=== PATIENT | female | born 1995 | race Caucasian/White ===

== ENCOUNTER 2017-06-22 01:02 | Emergency (ER) | payer MEDICAID ==
[~2017-06-22] VITALS: Ht 157.5 cm; Wt 155.0 kg
[~2017-06-22 01:02] MED LIST: CLA10T PO; CYCL-1 PO; MULT-785 PO; NEOM14.216 TP
[2017-06-22 01:23] LABS: CLARITY,URINE CLEAR (Clear); COLOR,URINE YELLOW (Yellow); GLUCOSE, URINE 500 mg/dl (Neg); KETONES,URINE NEGATIVE (Neg); LEUKOCYTE ESTERASE ,URINE NEGATIVE (Neg); NITRITES, URINE NEGATIVE (Neg); OCCULT BLOOD,URINE NEGATIVE (Neg); PROTEIN,URINE NEGATIVE (Neg); UROBILINOGEN,URINE 0.2 E.U/dL (0.2-1.0)
[2017-06-22 01:28] LABS: UA COLLECTION TYPE CLN CATCH MIDSTREAM
[2017-06-22 01:30] LABS: URINE HCG NEGATIVE (NEG)
[2017-06-22] MEDS ORDERED: ketorolac trometh inj. 60 MG/2 ML VIAL IM ONE (02:35)
[2017-06-22] MEDS ORDERED: HYDROcodone/acetaminophen 10/325mg tab PO ONE (02:35)
[2017-06-22] MEDS ORDERED: HYDR-565 PO (03:41)
[2017-06-22 03:57] VITALS: BP 142/98
== END 2017-06-22 03:58 | disposition home or self-care (01) ==
LOC: ER 01:02
DX: E28.2 Polycystic ovarian syndrome (principal); J45.909 Unspecified asthma, uncomplicated; Z88.0 Allergy status to penicillin; Z79.899 Other long term (current) drug therapy
CPT/HCPCS: 81003; 81025; 87210; 96372; 99284; J1885

== ENCOUNTER 2017-08-02 18:51 | Emergency (ER) | payer MEDICAID ==
[~2017-08-02] VITALS: Ht 157.5 cm; Wt 138.0 kg
[2017-08-02 19:18] LABS: BASOPHILS # (AUTO) 0.1 X10'3 (0-0.2); BASOPHILS % (AUTO) 0.7 % (0-1); EOSINOPHILS # (AUTO) 0.2 X10'3 (0-0.9); EOSINOPHILS % (AUTO) 1.5 % (0-6); HEMATOCRIT 38.5 % (35.0-45.0); HEMOGLOBIN 13.2 g/dl (12.0-16.0); LYMPHOCYTES % (AUTO) 30.8 % (21-51); MEAN CORPUSCULAR HEMOGLOBIN 27.7 PG (27.0-31.0); MEAN CORPUSCULAR HGB CONC 34.3 % (33.0-36.5); MEAN CORPUSCULAR VOLUME 80.9 FL (78-98); MEAN PLATELET VOLUME 9.2 FL (7.4-10.4); MONOCYTES # (AUTO) 0.4 X10'3 (0-0.9); MONOCYTES % (AUTO) 4.6 % (2-12); NEUTROPHILS # (AUTO) 6.1 X10'3 (1.8-7.7); NEUTROPHILS % (AUTO) 62.4 % (42-75); PLATELET COUNT 286 X10'3 (140-440); RED BLOOD COUNT 4.76 X10'6 (4.20-5.60); RED CELL DISTRIBUTION WIDTH 13.4 % (11.5-14.5); WHITE BLOOD COUNT 9.8 X10'3 (4.5-11.0)
[2017-08-02 19:24] LABS: INR 0.9 INR; PROTHROMBIN TIME 9.7 SECONDS (9.0-12.0)
[2017-08-02 19:29] LABS: ALBUMIN 3.8 G/DL (3.4-5.0); ANION GAP 10 (8-16); BILIRUBIN,TOTAL 0.3 MG/DL (0.1-1.0); BLOOD UREA NITROGEN 12 MG/DL (7-18); BUN/CREATININE RATIO 15.6 (6.6-38.0); CALCIUM 9.5 MG/DL (8.5-10.1); CHLORIDE 101 MMOL/L (99-107); CREATININE 0.77 MG/DL (0.40-0.90); GLUCOSE 148 MG/DL (70-104); POTASSIUM 3.8 MMOL/L (3.5-5.1); SODIUM 139 MMOL/L (135-145); TOTAL CARBON DIOXIDE 28.2 MMOL/L (24-32); TOTAL PROTEIN 7.8 G/DL (6.4-8.2); eGFR > 90 ML/MIN
[2017-08-02 19:30] LABS: ALANINE AMINOTRANSFERASE 77 U/L (12-78); ALKALINE PHOSPHATASE 69 IU/L (20-180); ASPARTATE AMINO TRANSFERASE 39 U/L (10-37)
[2017-08-02 19:45] LABS: CLARITY,URINE Clear (Clear); COLOR,URINE Yellow (Yellow); GLUCOSE, URINE 100 mg/dl (Neg); KETONES,URINE Negative (Neg); LEUKOCYTE ESTERASE ,URINE Negative (Neg); NITRITES, URINE Negative (Neg); OCCULT BLOOD,URINE Negative (Neg); PROTEIN,URINE Negative (Neg); UROBILINOGEN,URINE 0.2 E.U/dL (0.2-1.0)
[2017-08-02 19:46] LABS: UA COLLECTION TYPE CLN CATCH MIDSTREAM
[2017-08-02 22:10] VITALS: BP 159/106
== END 2017-08-03 00:16 | disposition left against medical advice (07) ==
LOC: ER 18:51
DX: N83.209 Unspecified ovarian cyst, unspecified side (principal); J45.909 Unspecified asthma, uncomplicated; Z88.0 Allergy status to penicillin; Z79.899 Other long term (current) drug therapy
CPT/HCPCS: 36415; 80053; 81003; 85025; 85610; 99284

== ENCOUNTER 2017-08-19 15:30 | Emergency (ER) | payer MEDICAID ==
[~2017-08-19] VITALS: Ht 157.5 cm; Wt 155.0 kg
[2017-08-19 15:39] VITALS: BP 127/50
[2017-08-19 16:27] LABS: URINE HCG NEGATIVE (NEG)
[2017-08-19 16:40] LABS: CLARITY,URINE CLEAR (Clear); COLOR,URINE YELLOW (Yellow); GLUCOSE, URINE NEGATIVE (Neg); KETONES,URINE NEGATIVE (Neg); LEUKOCYTE ESTERASE ,URINE SMALL (Neg); NITRITES, URINE NEGATIVE (Neg); OCCULT BLOOD,URINE LARGE (Neg); PH,URINE 5.5 (4.8-8.0); PROTEIN,URINE TRACE mg/dl (Neg); UROBILINOGEN,URINE 0.2 E.U/dL (0.2-1.0)
[2017-08-19 16:47] LABS: UA COLLECTION TYPE VOIDED
[2017-08-19 16:48] LABS: BACTERIA,URINE NONE SEEN /HPF (Neg); RBC,URINE 20-50 /HPF (0-2); SQUAMOUS EPITHELIAL CELL,UR MODERATE /LPF (FEW)
[2017-08-19 16:49] LABS: MUCUS STRANDS NONE SEEN /LPF (Neg)
[2017-08-19] MEDS ORDERED: metroNIDAZOLE 500mg tablet PO ONE (17:20)
[2017-08-19] MEDS ORDERED: naproxen 500mg tablet PO ONE (17:20)
[2017-08-19] MEDS ORDERED: doxycycline hyclate 100mg tablet.DR PO ONE (17:20)
[2017-08-19] MEDS ORDERED: CefTRIAXone 250MG IM Kit w/LIDOcaine IM ONE (17:20)
[2017-08-19] MEDS ORDERED: METR500T4 PO (17:43)
[2017-08-19] MEDS ORDERED: CLOT15CR5 TOP (17:43)
[2017-08-19] MEDS ORDERED: FLUC150T66 PO (17:43)
[2017-08-19] MEDS ORDERED: DOXY100C43 PO (17:43)
== END 2017-08-19 17:52 | disposition home or self-care (01) ==
LOC: ER 15:31
DX: N73.0 Acute parametritis and pelvic cellulitis (principal); B37.3 Candidiasis of vulva and vagina; Z20.2 Contact with and (suspected) exposure to infections with a predominantly sexual mode of transmission; J45.909 Unspecified asthma, uncomplicated; Z88.0 Allergy status to penicillin; Z90.89 Acquired absence of other organs; Z79.899 Other long term (current) drug therapy
CPT/HCPCS: 36415; 81001; 81025; 87088; 87210; 87491; 87591; 96372; 99284; J0696; J3490

== ENCOUNTER 2017-12-31 04:07 | Emergency (ER) | payer MEDICAID ==
[~2017-12-31] VITALS: Ht 157.5 cm; Wt 135.7 kg
[~2017-12-31 04:07] MED LIST changes: +CLOT15CR5 TOP
[2017-12-31] MEDS ORDERED: dexamethasone sod phosphate 10mg/ml inj PO STA (04:17)
[2017-12-31] MEDS ORDERED: albuterol 2.5 mg/0.5ml nebule NEB STA (04:17)
[2017-12-31] MEDS ORDERED: ipratropium/albuterol 3ml nebule NEB STA (04:38)
[2017-12-31] MEDS ORDERED: predniSONE 20 mg tablet PO ONE (06:45)
[2017-12-31] MEDS ORDERED: ALBU18HF2 INH (06:48)
[2017-12-31] MEDS ORDERED: PRED20TA PO (06:48)
[2017-12-31 06:50] VITALS: BP 153/77
== END 2017-12-31 07:14 | disposition home or self-care (01) ==
LOC: ER 04:07
DX: J45.901 Unspecified asthma with (acute) exacerbation (principal); Z90.89 Acquired absence of other organs; Z88.0 Allergy status to penicillin; Z79.899 Other long term (current) drug therapy
CPT/HCPCS: 93005; 94640; 94760; 99283; J1100; J7512

== ENCOUNTER 2018-01-01 01:14 | Emergency (ER) | payer MEDICAID ==
[~2018-01-01] VITALS: Ht 157.5 cm; Wt 143.2 kg
[~2018-01-01 01:14] MED LIST changes: +ALBU18HF2 INH; +PRED20TA PO
[2018-01-01] MEDS ORDERED: LORazepam 1 MG tablet PO ONE (02:35)
[2018-01-01 02:58] VITALS: BP 137/73
== END 2018-01-01 03:02 | disposition home or self-care (01) ==
LOC: ER 01:15
DX: F41.9 Anxiety disorder, unspecified (principal); J45.909 Unspecified asthma, uncomplicated; E11.9 Type 2 diabetes mellitus without complications; Z88.0 Allergy status to penicillin; Z79.899 Other long term (current) drug therapy; Z90.89 Acquired absence of other organs
CPT/HCPCS: 93005; 99284

== ENCOUNTER 2018-06-04 17:23 | Emergency (ER) | payer MEDICAID ==
[~2018-06-04 17:23] MED LIST changes: -PRED20TA PO
== END 2018-06-04 19:23 | disposition left against medical advice (07) ==
LOC: ER 17:23
DX: K08.89 Other specified disorders of teeth and supporting structures (principal); Z53.21 Procedure and treatment not carried out due to patient leaving prior to being seen by health care provider

== ENCOUNTER 2018-09-06 14:09 | Emergency (ER) | payer MEDICAID ==
[~2018-09-06] VITALS: Ht 152.4 cm; Wt 138.6 kg
--- NOTE | 2018-09-06 14:47 | NUR ---
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
--- NOTE | 2018-09-06 14:51 | NUR ---
PATIENT LAST TOOK IBUPROFEN 800 MG AND 650 MG TYLENOL "A COUPLE OF HOURS AGO"
[2018-09-06 14:56] LABS: URINE HCG NEGATIVE (NEG)
[2018-09-06 14:57] LABS: CLARITY,URINE SLIGHTLY CLOUDY (Clear); COLOR,URINE YELLOW (Yellow); GLUCOSE, URINE NEGATIVE (Neg); KETONES,URINE 15 mg/dl (Neg); LEUKOCYTE ESTERASE ,URINE NEGATIVE (Neg); NITRITES, URINE NEGATIVE (Neg); OCCULT BLOOD,URINE LARGE (Neg); PROTEIN,URINE TRACE mg/dl (Neg); UROBILINOGEN,URINE 0.2 E.U/dL (0.2-1.0)
[2018-09-06 15:01] LABS: UA COLLECTION TYPE CLN CATCH MIDSTREAM
[2018-09-06] MEDS ORDERED: ketorolac tromethamine 15mg/ml inj. IM ONE (15:20)
[2018-09-06 15:24] LABS: BACTERIA,URINE 1+ /HPF (Neg); MUCUS STRANDS MANY /LPF (Neg); SQUAMOUS EPITHELIAL CELL,UR MANY /LPF (FEW); WBC,URINE 0-4 /HPF (0-4)
[2018-09-06 16:45] VITALS: BP 155/79
== END 2018-09-06 16:16 | disposition home or self-care (01) ==
LOC: ER 14:09
DX: R10.32 Left lower quadrant pain (principal); R31.9 Hematuria, unspecified; J45.909 Unspecified asthma, uncomplicated; E11.9 Type 2 diabetes mellitus without complications; Z90.89 Acquired absence of other organs; Z88.0 Allergy status to penicillin; Z79.899 Other long term (current) drug therapy
CPT/HCPCS: 81001; 81025; 96372; 99283; J1885

== ENCOUNTER 2019-03-08 00:44 | Emergency (ER) | payer MEDICAID ==
[~2019-03-08] VITALS: Ht 154.9 cm; Wt 119.5 kg
[2019-03-08 00:46] VITALS: BP 132/62
[2019-03-08] MEDS ORDERED: HYDROcodone/acetaminophen 5mg/325mg tablet PO ONE (01:25)
[2019-03-08 01:30] LABS: URINE HCG NEGATIVE (NEG)
[2019-03-08 01:36] LABS: CLARITY,URINE CLEAR (Clear); COLOR,URINE YELLOW (Yellow); GLUCOSE, URINE NEGATIVE (Neg); KETONES,URINE TRACE mg/dl (Neg); LEUKOCYTE ESTERASE ,URINE NEGATIVE (Neg); NITRITES, URINE NEGATIVE (Neg); OCCULT BLOOD,URINE NEGATIVE (Neg); PROTEIN,URINE NEGATIVE (Neg); UROBILINOGEN,URINE 0.2 E.U/dL (0.2-1.0)
[2019-03-08 01:37] LABS: UA COLLECTION TYPE CLN CATCH MIDSTREAM
[2019-03-08] MEDS ORDERED: HYDR-3965 PO (01:43)
== END 2019-03-08 01:58 | disposition home or self-care (01) ==
LOC: ER 00:45
DX: R10.30 Lower abdominal pain, unspecified (principal); J45.909 Unspecified asthma, uncomplicated; E11.9 Type 2 diabetes mellitus without complications; F41.9 Anxiety disorder, unspecified; Z98.890 Other specified postprocedural states; Z77.29 Contact with and (suspected) exposure to other hazardous substances; Z88.0 Allergy status to penicillin; Z79.899 Other long term (current) drug therapy
CPT/HCPCS: 81003; 81025; 99283

== ENCOUNTER 2019-04-21 19:41 | Emergency (ER) | payer MEDICAID ==
[~2019-04-21] VITALS: Ht 154.9 cm; Wt 120.5 kg
[2019-04-21] MEDS ORDERED: albuterol 2.5 MG/3 ML nebule NEB ONE (20:00)
[2019-04-21] MEDS ORDERED: predniSONE 20 mg tablet PO ONE (20:00)
--- NOTE | 2019-04-21 20:12 | NUR ---
RT at bedside.
[2019-04-21] MEDS ORDERED: CETI-102 PO (20:42)
[2019-04-21] MEDS ORDERED: D ME PO (20:42)
[2019-04-21] MEDS ORDERED: ALBU18HF2 INH (20:42)
[2019-04-21 20:53] VITALS: BP 142/73
== END 2019-04-21 20:53 | disposition home or self-care (01) ==
LOC: ER 19:42
DX: J45.909 Unspecified asthma, uncomplicated (principal); E11.9 Type 2 diabetes mellitus without complications; Z90.89 Acquired absence of other organs; Z88.0 Allergy status to penicillin; Z79.899 Other long term (current) drug therapy
CPT/HCPCS: 94640; 99283; J7512; 94760

== ENCOUNTER 2019-09-19 03:11 | Emergency (ER) | payer MEDICAID ==
[~2019-09-19] VITALS: Ht 154.9 cm; Wt 115.9 kg
[~2019-09-19 03:11] MED LIST changes: +CETI-90 PO; +CLOT15CR35 TOP; -CLOT15CR5 TOP; +D ME PO
[2019-09-19] MEDS ORDERED: HYDROcodone/acetaminophen 5mg/325mg tablet PO ONE (03:35)
[2019-09-19] MEDS ORDERED: ketorolac trometh. 30mg/ml inj. IM ONE (03:35)
[2019-09-19 04:26] LABS: BASOPHILS # (AUTO) 0.1 X10'3 (0-0.2); BASOPHILS % (AUTO) 0.6 % (0-1); EOSINOPHILS # (AUTO) 0.1 X10'3 (0-0.9); EOSINOPHILS % (AUTO) 1.7 % (0-6); HEMATOCRIT 37.5 % (35.0-45.0); HEMOGLOBIN 12.4 g/dl (12.0-16.0); LYMPHOCYTES # (AUTO) 2.8 X10'3 (1.1-4.8); LYMPHOCYTES % (AUTO) 31.4 % (21-51); MEAN CORPUSCULAR HEMOGLOBIN 28.2 PG (27.0-31.0); MEAN CORPUSCULAR HGB CONC 32.9 g/dL (33.0-36.5); MEAN CORPUSCULAR VOLUME 85.7 FL (78-98); MEAN PLATELET VOLUME 9.2 FL (7.4-10.4); MONOCYTES # (AUTO) 0.4 X10'3 (0-0.9); NEUTROPHILS # (AUTO) 5.5 X10'3 (1.8-7.7); NEUTROPHILS % (AUTO) 61.3 % (42-75); PLATELET COUNT 232 X10'3 (140-440); RED BLOOD COUNT 4.38 X10'6 (4.20-5.60); RED CELL DISTRIBUTION WIDTH 13.5 % (11.5-14.5); WHITE BLOOD COUNT 8.9 X10'3 (4.5-11.0)
[2019-09-19 04:32] LABS: ALANINE AMINOTRANSFERASE 17 U/L (12-78); ALBUMIN 3.8 G/DL (3.4-5.0); ALBUMIN/GLOBULIN RATIO 1.2 (1.1-1.5); ALKALINE PHOSPHATASE 55 IU/L (46-116); ANION GAP 9 (8-16); ASPARTATE AMINO TRANSFERASE 12 U/L (10-37); BILIRUBIN,TOTAL 0.4 MG/DL (0.1-1.0); BLOOD UREA NITROGEN 7 MG/DL (7-18); BUN/CREATININE RATIO 8.9 (6.6-38.0); CHLORIDE 106 MMOL/L (99-107); CREATININE 0.79 MG/DL (0.40-0.90); GLUCOSE 81 MG/DL (70-104); POTASSIUM 3.5 MMOL/L (3.5-5.1); SODIUM 143 MMOL/L (135-145); TOTAL CARBON DIOXIDE 27.6 MMOL/L (24-32); eGFR > 90 ML/MIN
[2019-09-19] MEDS ORDERED: HYDR-3965 PO (05:18)
[2019-09-19 05:27] VITALS: BP 124/71
== END 2019-09-19 05:28 | disposition home or self-care (01) ==
LOC: ER 03:11
DX: R10.13 Epigastric pain (principal); N89.8 Other specified noninflammatory disorders of vagina; J45.909 Unspecified asthma, uncomplicated; E11.9 Type 2 diabetes mellitus without complications; F41.9 Anxiety disorder, unspecified; Z90.89 Acquired absence of other organs; Z77.22 Contact with and (suspected) exposure to environmental tobacco smoke (acute) (chronic); Z88.0 Allergy status to penicillin; Z79.899 Other long term (current) drug therapy
CPT/HCPCS: 36415; 80053; 85025; 96372; 99283; J1885

== ENCOUNTER 2019-09-26 23:01 | Emergency (ER) | payer MEDICAID ==
[~2019-09-26] VITALS: Ht 157.5 cm; Wt 115.9 kg
[~2019-09-26 23:01] MED LIST changes: +HYDR-3965 PO
[2019-09-27 00:30] LABS: BASOPHILS # (AUTO) 0.1 X10'3 (0-0.2); BASOPHILS % (AUTO) 0.7 % (0-1); EOSINOPHILS # (AUTO) 0.1 X10'3 (0-0.9); EOSINOPHILS % (AUTO) 1.6 % (0-6); HEMOGLOBIN 12.4 g/dl (12.0-16.0); LYMPHOCYTES # (AUTO) 2.9 X10'3 (1.1-4.8); LYMPHOCYTES % (AUTO) 32.5 % (21-51); MEAN CORPUSCULAR HEMOGLOBIN 28.1 PG (27.0-31.0); MEAN CORPUSCULAR HGB CONC 32.8 g/dL (33.0-36.5); MEAN CORPUSCULAR VOLUME 85.6 FL (78-98); MEAN PLATELET VOLUME 9.6 FL (7.4-10.4); MONOCYTES # (AUTO) 0.5 X10'3 (0-0.9); MONOCYTES % (AUTO) 5.9 % (2-12); NEUTROPHILS # (AUTO) 5.3 X10'3 (1.8-7.7); NEUTROPHILS % (AUTO) 59.3 % (42-75); PLATELET COUNT 237 X10'3 (140-440); RED BLOOD COUNT 4.43 X10'6 (4.20-5.60); RED CELL DISTRIBUTION WIDTH 13.6 % (11.5-14.5)
--- NOTE | 2019-09-27 00:32 | NUR ---
pt provided ua is having pain 11/30 she is requesting pain medication
[2019-09-27 00:33] LABS: ALANINE AMINOTRANSFERASE 20 U/L (12-78); ALBUMIN 3.6 G/DL (3.4-5.0); ALBUMIN/GLOBULIN RATIO 1.2 (1.1-1.5); ALKALINE PHOSPHATASE 51 IU/L (46-116); ANION GAP 5 (8-16); ASPARTATE AMINO TRANSFERASE 12 U/L (10-37); BILIRUBIN,TOTAL 0.2 MG/DL (0.1-1.0); BLOOD UREA NITROGEN 9 MG/DL (7-18); BUN/CREATININE RATIO 10.2 (6.6-38.0); CALCIUM 8.6 MG/DL (8.5-10.1); CHLORIDE 107 MMOL/L (99-107); CREATININE 0.88 MG/DL (0.40-0.90); GLUCOSE 72 MG/DL (70-104); LIPASE 213 U/L (73-393); POTASSIUM 3.9 MMOL/L (3.5-5.1); SODIUM 142 MMOL/L (135-145); TOTAL PROTEIN 6.7 G/DL (6.4-8.2); eGFR 80 ML/MIN
[2019-09-27 00:41] LABS: URINE HCG NEGATIVE (NEG)
[2019-09-27 00:49] LABS: CLARITY,URINE CLEAR (Clear); COLOR,URINE YELLOW (Yellow); GLUCOSE, URINE NEGATIVE (Neg); KETONES,URINE NEGATIVE (Neg); LEUKOCYTE ESTERASE ,URINE NEGATIVE (Neg); NITRITES, URINE NEGATIVE (Neg); OCCULT BLOOD,URINE NEGATIVE (Neg); PH,URINE 7.5 (4.8-8.0); PROTEIN,URINE NEGATIVE (Neg); UROBILINOGEN,URINE 0.2 E.U/dL (0.2-1.0)
[2019-09-27] MEDS ORDERED: traMADol 50MG tablet PO ONE (00:55)
[2019-09-27 00:58] LABS: UA COLLECTION TYPE CLN CATCH MIDSTREAM
[2019-09-27] MEDS ORDERED: POLY17PO10 PO (01:05)
[2019-09-27] MEDS ORDERED: TRAM50TA2 PO (01:10)
[2019-09-27 01:24] VITALS: BP 100/71
== END 2019-09-27 01:27 | disposition home or self-care (01) ==
LOC: ER 23:02
DX: R10.12 Left upper quadrant pain (principal); K59.00 Constipation, unspecified; J45.909 Unspecified asthma, uncomplicated; E11.9 Type 2 diabetes mellitus without complications; F41.9 Anxiety disorder, unspecified; Z90.89 Acquired absence of other organs; Z88.6 Allergy status to analgesic agent; Z88.0 Allergy status to penicillin; Z88.8 Allergy status to other drugs, medicaments and biological substances; Z79.2 Long term (current) use of antibiotics; Z79.899 Other long term (current) drug therapy
CPT/HCPCS: 36415; 80053; 81003; 81025; 83690; 85025; 99283

== ENCOUNTER 2019-11-01 12:02 | Emergency (ER) | payer MEDICAID ==
[~2019-11-01] VITALS: Ht 160 cm; Wt 113.6 kg
[~2019-11-01 12:02] MED LIST changes: -HYDR-3965 PO
[2019-11-01] MEDS ORDERED: TRAM50TA2 PO (14:12)
[2019-11-01] MEDS ORDERED: CLIN-97 PO (14:12)
[2019-11-01 14:35] VITALS: BP 125/88
== END 2019-11-01 14:36 | disposition home or self-care (01) ==
LOC: ER 12:03
DX: S03.2XXA Dislocation of tooth, initial encounter (principal); K08.89 Other specified disorders of teeth and supporting structures; H92.02 Otalgia, left ear; J45.909 Unspecified asthma, uncomplicated; E11.9 Type 2 diabetes mellitus without complications; F41.9 Anxiety disorder, unspecified; Z90.89 Acquired absence of other organs; Z88.0 Allergy status to penicillin; Z88.6 Allergy status to analgesic agent; Z88.8 Allergy status to other drugs, medicaments and biological substances; Z79.2 Long term (current) use of antibiotics; Z79.899 Other long term (current) drug therapy; X58.XXXA Exposure to other specified factors, initial encounter; Y93.89 Activity, other specified; Y92.89 Other specified places as the place of occurrence of the external cause; Y99.8 Other external cause status
CPT/HCPCS: 99283

== ENCOUNTER 2021-06-06 16:37 | Emergency (ER) | payer MEDICAID ==
[~2021-06-06] VITALS: Ht 157.5 cm; Wt 127.3 kg
[~2021-06-06 16:37] MED LIST changes: +CLIN-97 PO
[2021-06-06 17:00] VITALS: BP 137/78
[2021-06-06] MEDS ORDERED: TRAM50TA2 PO (18:26)
== END 2021-06-06 19:16 | disposition home or self-care (01) ==
LOC: ER 16:38
DX: S93.491A Sprain of other ligament of right ankle, initial encounter (principal); J45.909 Unspecified asthma, uncomplicated; F41.9 Anxiety disorder, unspecified; F32.9 Major depressive disorder, single episode, unspecified; Z88.0 Allergy status to penicillin; X50.0XXA Overexertion from strenuous movement or load, initial encounter; Y93.89 Activity, other specified; Y92.89 Other specified places as the place of occurrence of the external cause; Y99.8 Other external cause status
CPT/HCPCS: 99283

== ENCOUNTER 2022-02-01 12:14 | Emergency (ER) | payer MEDICAID ==
[~2022-02-01] VITALS: Ht 157.5 cm; Wt 122.7 kg
[2022-02-01 13:06] LABS: BASOPHILS # (AUTO) 0.1 X10'3 (0-0.2); BASOPHILS % (AUTO) 1.5 % (0-1); EOSINOPHILS # (AUTO) 0.1 X10'3 (0-0.9); EOSINOPHILS % (AUTO) 2.4 % (0-6); HEMATOCRIT 40.9 % (35.0-45.0); HEMOGLOBIN 13.6 g/dl (12.0-16.0); LYMPHOCYTES # (AUTO) 1.3 X10'3 (1.1-4.8); LYMPHOCYTES % (AUTO) 33.6 % (21-51); MEAN CORPUSCULAR HEMOGLOBIN 27.8 PG (27.0-31.0); MEAN CORPUSCULAR HGB CONC 33.2 g/dL (33.0-36.5); MEAN CORPUSCULAR VOLUME 83.8 FL (78-98); MEAN PLATELET VOLUME 8.7 FL (7.4-10.4); MONOCYTES # (AUTO) 0.4 X10'3 (0-0.9); MONOCYTES % (AUTO) 10.2 % (2-12); NEUTROPHILS % (AUTO) 52.3 % (42-75); PLATELET COUNT 188 X10'3 (140-440); RED BLOOD COUNT 4.87 X10'6 (4.20-5.60); RED CELL DISTRIBUTION WIDTH 13.6 % (11.5-14.5); WHITE BLOOD COUNT 3.8 X10'3 (4.5-11.0)
[2022-02-01 13:20] LABS: ALANINE AMINOTRANSFERASE 58 U/L (12-78); ALBUMIN 3.6 G/DL (3.4-5.0); ALKALINE PHOSPHATASE 76 IU/L (46-116); ANION GAP 8 (8-16); ASPARTATE AMINO TRANSFERASE 31 U/L (10-37); BILIRUBIN,TOTAL 0.2 MG/DL (0.1-1.0); BLOOD UREA NITROGEN 6 MG/DL (7-18); BUN/CREATININE RATIO 7.8 (6.6-38.0); CHLORIDE 104 MMOL/L (99-107); CREATININE 0.77 MG/DL (0.40-0.90); GLUCOSE 103 MG/DL (70-104); LIPASE 69 U/L (73-393); SODIUM 140 MMOL/L (135-145); TOTAL PROTEIN 7.3 G/DL (6.4-8.2); eGFR > 90 ML/MIN
[2022-02-01 13:33] LABS: URINE HCG NEGATIVE (NEG)
[2022-02-01 13:34] LABS: CLARITY,URINE CLOUDY (Clear); COLOR,URINE YELLOW (Yellow); GLUCOSE, URINE NEGATIVE (Neg); KETONES,URINE NEGATIVE (Neg); LEUKOCYTE ESTERASE ,URINE NEGATIVE (Neg); NITRITES, URINE NEGATIVE (Neg); OCCULT BLOOD,URINE LARGE (Neg); PH,URINE 7.5 (4.8-8.0); PROTEIN,URINE NEGATIVE (Neg); UROBILINOGEN,URINE 0.2 E.U/dL (0.2-1.0)
[2022-02-01 14:18] LABS: MUCUS STRANDS FEW /LPF (Neg); SQUAMOUS EPITHELIAL CELL,UR MODERATE /LPF (FEW); UA COLLECTION TYPE CLN CATCH MIDSTREAM
[2022-02-01 14:20] LABS: BACTERIA,URINE FEW /HPF (Neg); RBC,URINE 50-100 /HPF (0-2); TRANSITIONAL EPI CELLS,URINE FEW /HPF; WBC,URINE 0-4 /HPF (0-4)
[2022-02-01] MEDS ORDERED: ringers solution, lacted 1,000 ML IV ONE (15:30)
[2022-02-01] MEDS ORDERED: ketorolac trometh. 30mg/ml inj. IV ONE (15:30)
[2022-02-01] MEDS ORDERED: ondansetron/PF 4mg/2ml inj IV ONE (16:55)
[2022-02-01] MEDS ORDERED: morphine 4 MG/ML inj SYRINge IV ONE (16:55)
[2022-02-01] MEDS ORDERED: HYDR-3965 PO (17:23)
[2022-02-01 18:03] VITALS: BP 100/112
== END 2022-02-01 18:06 | disposition home or self-care (01) ==
LOC: ER 12:14
DX: R10.32 Left lower quadrant pain (principal); J45.909 Unspecified asthma, uncomplicated; E11.9 Type 2 diabetes mellitus without complications; F41.9 Anxiety disorder, unspecified; Z90.89 Acquired absence of other organs; Z98.890 Other specified postprocedural states; Z88.0 Allergy status to penicillin; Z88.6 Allergy status to analgesic agent; Z88.8 Allergy status to other drugs, medicaments and biological substances; Z79.2 Long term (current) use of antibiotics; Z79.899 Other long term (current) drug therapy
CPT/HCPCS: 36415; 74176; 76700; 80053; 81001; 81025; 83690; 85025; 96361; 96374; 96375; 99285; J2270; J2405; J7120; J7030

== ENCOUNTER 2022-12-20 14:58 | Emergency (ER) | payer MEDICAID ==
[~2022-12-20] VITALS: Ht 157.5 cm; Wt 134.1 kg
[2022-12-20 16:10] VITALS: BP 121/74; PULSE 69; RESP 18; TEMP 97.9; O2SAT 99
[2022-12-20] MEDS ORDERED: ketorolac trometh inj. 60 MG/2 ML VIAL IM ONE (20:05)
[2022-12-20] MEDS ORDERED: ketorolac tromethamine 15mg/ml inj. IM ONE (20:05)
[2022-12-20] MEDS ORDERED: NAPR-1154 PO (20:05)
== END 2022-12-20 20:26 | disposition home or self-care (01) ==
LOC: ER 14:58
DX: S30.1XXA Contusion of abdominal wall, initial encounter (principal); J45.909 Unspecified asthma, uncomplicated; E11.9 Type 2 diabetes mellitus without complications; F41.9 Anxiety disorder, unspecified; Z88.0 Allergy status to penicillin; Z79.899 Other long term (current) drug therapy
CPT/HCPCS: 99284

== ENCOUNTER 2023-06-05 23:09 | Emergency (ER) | payer MEDICAID ==
[~2023-06-05] VITALS: Ht 160 cm; Wt 146.1 kg
[~2023-06-05 23:09] MED LIST changes: +NAPR-1154 PO
[2023-06-05 23:14] VITALS: BP 151/86; PULSE 94; TEMP 97.9; O2SAT 100
[2023-06-05] MEDS ORDERED: CLIN150C2 PO (23:45)
[2023-06-05] MEDS ORDERED: HYDR-3965 PO (23:45)
[2023-06-05] MEDS: ondansetron 4mg rapidly disintigrating tab PO ONE (23:53)
[2023-06-05 23:54] VITALS: RESP 16
[2023-06-05] MEDS: HYDROcodone/acetaminophen 10/325mg tab PO ONE (23:54)
== END 2023-06-05 23:57 | disposition home or self-care (01) ==
LOC: ER 23:10
DX: K08.89 Other specified disorders of teeth and supporting structures (principal); J45.909 Unspecified asthma, uncomplicated; E11.9 Type 2 diabetes mellitus without complications; Z88.0 Allergy status to penicillin; Z79.899 Other long term (current) drug therapy; Z79.2 Long term (current) use of antibiotics; Z79.1 Long term (current) use of non-steroidal anti-inflammatories (NSAID); Z98.890 Other specified postprocedural states
CPT/HCPCS: 99283

== ENCOUNTER 2023-06-18 11:10 | Emergency (ER) | payer MEDICAID ==
[~2023-06-18] VITALS: Ht 157.5 cm; Wt 144.1 kg
[~2023-06-18 11:10] MED LIST changes: +HYDR-3965 PO
[2023-06-18 11:18] VITALS: BP 125/83; PULSE 80; O2SAT 98
[2023-06-18] MEDS ORDERED: TRAM50TA2 PO (12:22)
[2023-06-18 12:56] VITALS: RESP 15
[2023-06-18] MEDS: ketorolac tromethamine 15mg/ml inj. IM ONE (12:56)
[2023-06-18] MEDS: BUPIVAcaine/PF 2.5mg/ml (0.25%) 10ml vial SQ ONE (12:57)
[2023-06-18 13:01] VITALS: TEMP 97.8
== END 2023-06-18 13:04 | disposition home or self-care (01) ==
LOC: ER 11:10
DX: K08.89 Other specified disorders of teeth and supporting structures (principal); J45.909 Unspecified asthma, uncomplicated; E11.9 Type 2 diabetes mellitus without complications; Z88.0 Allergy status to penicillin; Z79.899 Other long term (current) drug therapy; Z79.2 Long term (current) use of antibiotics; Z98.890 Other specified postprocedural states
CPT/HCPCS: 64400; 96372; 99284; J1885

== ENCOUNTER 2023-07-15 21:24 | Emergency (ER) | payer MEDICAID ==
[~2023-07-15] VITALS: Ht 157.5 cm; Wt 140.0 kg
[~2023-07-15 21:24] MED LIST changes: -HYDR-3965 PO; +TRAM50TA2 PO
[2023-07-15 21:26] VITALS: BP 167/83; PULSE 75; TEMP 98.2; O2SAT 98
[2023-07-15 22:09] VITALS: RESP 16
[2023-07-15] MEDS: oxyCODONE/APAP 5-325mg tablet PO ONE (22:09)
== END 2023-07-15 22:22 | disposition home or self-care (01) ==
LOC: ER 21:25
DX: K08.89 Other specified disorders of teeth and supporting structures (principal); J45.909 Unspecified asthma, uncomplicated; E11.9 Type 2 diabetes mellitus without complications; F41.9 Anxiety disorder, unspecified; Z98.890 Other specified postprocedural states; Z88.0 Allergy status to penicillin; Z79.899 Other long term (current) drug therapy; Z79.2 Long term (current) use of antibiotics
CPT/HCPCS: 99283

== ENCOUNTER 2023-12-08 10:41 | Emergency (ER) | payer MEDICAID, OTHER ==
[~2023-12-08] VITALS: Ht 157.5 cm; Wt 139.0 kg
[~2023-12-08 10:41] MED LIST changes: -TRAM50TA2 PO
[2023-12-08 10:58] VITALS: TEMP 98.4
[2023-12-08 11:33] LABS: BASOPHILS # (AUTO) 0.1 X10'3 (0-0.2); BASOPHILS % (AUTO) 0.9 % (0-1); EOSINOPHILS # (AUTO) 0.2 X10'3 (0-0.9); EOSINOPHILS % (AUTO) 2.6 % (0-6); HEMATOCRIT 38.6 % (35.0-45.0); HEMOGLOBIN 12.3 g/dl (12.0-16.0); LYMPHOCYTES % (AUTO) 24.7 % (21-51); MEAN CORPUSCULAR HEMOGLOBIN 26.4 PG (27.0-31.0); MEAN CORPUSCULAR VOLUME 82.5 FL (78-98); MEAN PLATELET VOLUME 9.1 FL (7.4-10.4); MONOCYTES # (AUTO) 0.4 X10'3 (0-0.9); NEUTROPHILS # (AUTO) 5.4 X10'3 (1.8-7.7); NEUTROPHILS % (AUTO) 66.8 % (42-75); PLATELET COUNT 234 X10'3 (140-440); RED BLOOD COUNT 4.68 X10'6 (4.20-5.60); WHITE BLOOD COUNT 8.1 X10'3 (4.5-11.0)
[2023-12-08 11:36] LABS: URINE HCG NEGATIVE (NEG)
[2023-12-08 11:42] LABS: BILIRUBIN,URINE NEGATIVE (Neg); CLARITY,URINE CLOUDY (Clear); COLOR,URINE YELLOW (Yellow); GLUCOSE, URINE NEGATIVE (Neg); KETONES,URINE NEGATIVE (Neg); LEUKOCYTE ESTERASE ,URINE NEGATIVE (Neg); NITRITES, URINE NEGATIVE (Neg); OCCULT BLOOD,URINE NEGATIVE (Neg); PROTEIN,URINE NEGATIVE (Neg); UROBILINOGEN,URINE 0.2 E.U/dL (0.2-1.0)
[2023-12-08 11:46] LABS: ALANINE AMINOTRANSFERASE 28 U/L (12-78); ALBUMIN 3.6 G/DL (3.4-5.0); ALKALINE PHOSPHATASE 66 IU/L (46-116); ANION GAP 8 (8-16); ASPARTATE AMINO TRANSFERASE 13 U/L (10-37); BILIRUBIN,TOTAL 0.4 MG/DL (0.1-1.0); BLOOD UREA NITROGEN 11 MG/DL (7-18); BUN/CREATININE RATIO 15.5 (10.0-20.0); CHLORIDE 104 MMOL/L (99-107); CREATININE 0.71 MG/DL (0.40-0.90); GLUCOSE 103 MG/DL (70-104); LIPASE 29 U/L (16-77); POTASSIUM 3.9 MMOL/L (3.5-5.1); SODIUM 139 MMOL/L (135-145); TOTAL CARBON DIOXIDE 26.7 MMOL/L (24-32); TOTAL PROTEIN 7.2 G/DL (6.4-8.2); eCRCL 95 ML/MIN; eGFR > 90 ML/MIN
[2023-12-08 11:49] LABS: UA COLLECTION TYPE CLN CATCH MIDSTREAM
[2023-12-08 11:50] LABS: BACTERIA,URINE NONE SEEN /HPF (Neg); MUCUS STRANDS FEW /LPF (Neg); RBC,URINE 0-2 /HPF (0-2); SQUAMOUS EPITHELIAL CELL,UR MANY /LPF (FEW); WBC,URINE 0-4 /HPF (0-4)
[2023-12-08 12:35] VITALS: BP 121/82; PULSE 72; RESP 16; O2SAT 98
[2023-12-09] MEDS ORDERED: TRAM50TA2 PO (12:49)
== END 2023-12-08 12:55 | disposition home or self-care (01) ==
LOC: ER 10:41
DX: E28.2 Polycystic ovarian syndrome (principal); R10.2 Pelvic and perineal pain; J45.909 Unspecified asthma, uncomplicated; E11.9 Type 2 diabetes mellitus without complications; F41.9 Anxiety disorder, unspecified; Z88.0 Allergy status to penicillin; Z79.899 Other long term (current) drug therapy; Z79.2 Long term (current) use of antibiotics; Z98.890 Other specified postprocedural states
CPT/HCPCS: 36415; 76830; 76856; 80053; 81001; 81025; 83690; 85025; 93976; 99284

== ENCOUNTER 2024-02-29 22:37 | Emergency (ER) | payer OTHER ==
[~2024-02-29] VITALS: Ht 157.5 cm; Wt 127.3 kg
[2024-02-29 23:41] VITALS: BP 124/76; PULSE 87; TEMP 97.4; O2SAT 99
[2024-03-01] MEDS ORDERED: HYDR-3965 PO (01:35)
[2024-03-01 01:44] VITALS: RESP 16
[2024-03-01] MEDS: HYDROcodone/acetaminophen 10/325mg tab PO ONE (01:44)
== END 2024-03-01 02:01 | disposition home or self-care (01) ==
LOC: ER 22:38
DX: H92.01 Otalgia, right ear (principal); H60.8X1 Other otitis externa, right ear; J45.909 Unspecified asthma, uncomplicated; F41.9 Anxiety disorder, unspecified; E11.9 Type 2 diabetes mellitus without complications; Z98.890 Other specified postprocedural states; Z90.89 Acquired absence of other organs; Z88.0 Allergy status to penicillin; Z79.899 Other long term (current) drug therapy; Z79.1 Long term (current) use of non-steroidal anti-inflammatories (NSAID)
CPT/HCPCS: 82948; 99283